=== PATIENT | male | born 1950 | race Caucasian/White ===

== ENCOUNTER 2022-05-28 16:22 | Outpatient (REF) | payer MEDICARE, SELFPAY ==
[2022-05-28 16:55] LABS: Ammonia 53 umol/L (13-55)
[2022-05-28 17:35] LABS: Carbamazepine Tegretol 11.1 mcg/mL (5.0-12.0)
[2022-05-28 17:39] LABS: Alanine Aminotransferase 24 U/L (0-40); Albumin Level 4.2 g/dL (3.5-5.0); Alkaline Phosphatase 71 U/L (39-117); Anion Gap 14 (12-20); Aspartate Amino Transferase 23 U/L (5-37); Bilirubin Direct 0.2 mg/dL (0.0-0.5); Bilirubin Total 0.5 mg/dL (0.0-1.0); Carbon Dioxide 25 mmol/L (22-29); Chloride 111 mmol/L (96-108); Potassium 4.6 mmol/L (3.3-5.1); Sodium 145 mmol/L (135-145); Total Protein 6.7 g/dL (6.5-8.0)
== END 2022-05-28 16:23 | disposition home or self-care (01) ==
LOC: HO.LAB 16:22
PROVIDERS: PCP Internal Medicine; Visit Provider Psychiatry & Neurology Neurology
DX: G40.909 Epilepsy, unspecified, not intractable, without status epilepticus (principal)
CPT/HCPCS: 36415; 80051; 80076; 80156; 80164; 82140

== ENCOUNTER 2023-05-27 15:32 | Outpatient (REF) | payer MEDICARE, SELFPAY ==
[2023-05-27 15:54] LABS: Ammonia 40 umol/L (13-55)
[2023-05-27 16:02] LABS: Alanine Aminotransferase 22 U/L (0-40); Albumin Level 4.4 g/dL (3.5-5.0); Alkaline Phosphatase 69 U/L (39-117); Aspartate Amino Transferase 23 U/L (5-37); Bilirubin Direct 0.2 mg/dL (0.0-0.5); Bilirubin Total 0.4 mg/dL (0.0-1.0); Total Protein 7.1 g/dL (6.5-8.0)
[2023-05-27 16:08] LABS: Carbamazepine Tegretol 10.4 mcg/mL (5.0-12.0); Valproate 75.5 mcg/mL (50.0-100.0)
== END 2023-05-27 15:33 | disposition home or self-care (01) ==
LOC: HO.LABR 15:32
PROVIDERS: Visit Provider Psychiatry & Neurology Neurology
DX: R56.9 Unspecified convulsions (principal); Z79.899 Other long term (current) drug therapy
CPT/HCPCS: 36415; 80076; 80156; 80164; 82140

== ENCOUNTER 2025-01-04 15:42 | Outpatient (AMB) | payer MEDICARE, SELFPAY ==
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
--- OUTSIDE RECORDS SUMMARY | 2025-01-04 19:59 | XMS_ITS | Patient Health Record ---
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 Name Role Phone Willi Marina MD Primary Care Provider Glory LopezLize Unavailable [phone] Allergies Allergen (clinical drug ingredient) Drug/Non Drug Allergy documented on EMR Reaction Allergy Type Onset Date Status phenytoin Dilantin Unknown Drug Allergy Active acetaminophen Tylenol Unknown Drug Allergy Act kae simvastatin Zocor Unknown Drug Allergy Activ e Results Component Value Reference Range Notes X ray : Foot, right 3V Reviewed date:03/25/2024 12:41:51 PM Interpretation:See Examination above Performing Lab: Notes/Report: See Examination above Reason For Referral No Information Medications Medication SIG (Take, Route, Frequency, Duration) Notes Start Date End Date Status Ezetimibe 10 MG 1 tablet Orally Once a day Unknown Vitamin B12 1000 MCG 1 tablet Orally Onc e a day Unknown Cephalexin 500 MG 1 capsule Orally francisco javier ry 12 hrs; Duration: 10 day(s) 03/25/2024 Active Baby Aspirin Active Crestor Active Depakote 250 MG 1 tablet Orally Twic e a day Active TEGretol-XR 200 MG 1 tablet Orally Twic e a day Active Rosuvastatin Calcium 40 MG 1 tablet Oral ly Once a day Unknown Ativan 1 MG 1 tablet at bedtime as needed Orally Once a day Unknown Calcium 600 High Potency 600 MG 1 tablet with food Orally Twice a day Active Zinc 30 MG 1 tablet Orally Once a day Active Fish Oil Burp-Less 1000 MG 1 capsule Ora lly Three times a day Active Multivitamin Adult - 1 tablet Orally Onc e a day Active Social History Tobacco Use: Social History Observation Description Date Details (start date - stop date) Never Smoker NA - NA Tobacco use other than smoking: Question Answer Notes Are you an other tobacco user? No Tobacco Control (Standard) Question Answer Notes Tobacco use: Nonsmoker Additional Findings: Tobacco non-user Current no nsmoker AUDIT-C (Standard) Question Answer Notes Did you have a drink contain ing alcohol in the past year? Yes How often did you have a dri nk containing alcohol in the past year? Never (0 point) How many drinks did you have on a typical day when you were drinking in the past year? 1 or 2 drinks (0 point) How often did you have six o r more drinks on one occasion in the past year? Never (0 point) Points 0 Interpretation Negative Problems Problem Type SNOMED Code ICD Code Onset Dates Problem Status W/U Status Risk Notes Problem Acquired hammer toe of right foot (2991416108698390) Other hammer toe(s) (acquired), right foot (M20.41) Active confirmed Problem Acquired hammer toe of left foot ([id number]) Other hammer toe(s) (acquired), left foot (M20.42) Active confirmed Problem Localized, primary osteoarthritis of the ankle and/or foot (662713022) Arthritis of joint of lesser toe, left (M19.072) Active confirmed Problem Localized, primary osteoarthritis of the ankle and/or foot (393852810) Arthritis of joint of lesser toe, right (M19.071) Active confirmed Vital Signs Blood pressure diastolic 77 mm Hg 04/13/2024 Height 5ft 9in in 04/13/2024 Blood pressure systolic 140 mm Hg 04/13/2024 Weight 220 lbs 04/13/2024 BMI 32.48 kg/m2 04/13/2024 Encounters Encounter Location Date [facility] [address] [place] [address] 03/25/2024 [facility] [facility] Cellulitis of foot L03.119 ; Bug bite, initial encounter W57.XXXA ; Soft tissue lesion of foot M79.9 ; Foreign body (FB) in soft tissue M79.5 and Foot pain, right M79.[address] [facility] [address] 03/31/2024 [facility] Cellulitis of foot L03.119 ; Soft tissue lesion of foot M79.9 ; Bug bite, initial encounter W57.XXXA ; Foreign body (FB) in soft tissue M79.5 ; Foot pain, right M79.671 ; Pain in right toe(s) M79.674 and Pain in left toe(s) M79.[address] [address] 04/13/2024 [facility] Soft tissue lesion of foot M79.9 ; Hematoma T14.8XXA ; Foot pain, right M79.671 and Phlegmon L02.[address] [address] 03/22/2024 [facility] [address] 03/23/2024 [facility] [facility] [address] [address] 03/25/2024 [facility] [address] 03/31/2024 [facility] Assessments Encounter Date Diagnosis (ICD Code) Assessment Notes Treatment Notes Treatment Clinical Notes Section Notes 03/25/2024 Cellulitis of foot (ICD-10 - L03.119) 03/31/2024 Cellulitis of foot (ICD-10 - L03.119) 03/31/2024 Soft tissue lesion of foot (ICD-10 - M79.9) 04/13/2024 Hematoma (ICD-10 - T14.8XXA) 04/13/2024 Soft tissue lesion of foot (ICD-10 - M79.9) 04/13/2024 Foot pain, right (ICD-10 - M79.671) 03/31/2024 Bug bite, initial encounter (ICD-10 - W57.XXXA) 03/25/2024 Bug bite, initial encounter (ICD-10 - W57.XXXA) 03/25/2024 Soft tissue lesion of foot (ICD-10 - M79.9) 04/13/2024 Phlegmon (ICD-10 - L02.91) 03/31/2024 Foreign body (FB) in soft tissue (ICD-10 - M79.5) 03/25/2024 Foreign body (FB) in soft tissue (ICD-10 - M79.5) 03/31/2024 Foot pain, right (ICD-10 - M79.671) 03/31/2024 Pain in right toe(s) (ICD-10 - M79.674) 03/25/2024 Foot pain, right (ICD-10 - M79.671) 03/31/2024 Pain in left toe(s) (ICD-10 - M79.675) Plan Of Treatment Pending Test Test Name Order Date *CBC With Differential/Platelet 03/25/19 Ultrasound : Lower Extremity, right 03/10 Insurance Providers Payer Name Payer Address Payer Phone Subscriber Number Group Number Insured Name Patient Relationship to Insured Coverage Start Date Coverage End Date Medicare [employer] [address] [place] [address] [id number] Bebeto Orellana Self - patient is the insured 1 8 [employer] Preferred [address] [place] [id number] [phone] [id number] Bebeto Orellana Self - patient is the insured Medical (General) History Medical History History ICD Code Coronary Arteriosclerosis Hyperglycemia aortic aneurysm Shoulder joint pain Hyperammonemic encephalopathy contusion of abdominal wall abdominal pain dyspnea edema Wrist pain Closed fracture of multiple ribs Seizures Hyperlipidemia Arthralgia of lower leg and upper arm Back,Hip,and Knee pain Broken bones CAD (Cholesterol) Cataracts covid-19 Hiatal hernia Lyme disease Osteoporosis Measles Mumps Chicken pox Surgical History Surgery Date(Month/Year) colonoscopy 03/12/2016 hernia 1915 back surgery 1989
== END 2025-01-04 16:04 | disposition home or self-care (01) ==
LOC: HO.HSM 15:43
PROVIDERS: PCP Internal Medicine; Visit Provider Psychiatry & Neurology Neurology
DX: G40.209 Localization-related (focal) (partial) symptomatic epilepsy and epileptic syndromes with complex partial seizures, not intractable, without status epilepticus (principal)
CPT/HCPCS: 99214

== ENCOUNTER 2025-01-04 15:42 | Outpatient (REF) | payer MEDICARE, SELFPAY ==
[2025-01-04 16:36] LABS: Ammonia 47 umol/L (13-55)
[2025-01-04 18:39] LABS: Carbamazepine Tegretol 9.3 mcg/mL (5.0-12.0)
== END 2025-01-04 15:43 | disposition home or self-care (01) ==
LOC: HO.LAB 15:42
PROVIDERS: PCP Internal Medicine; Visit Provider Psychiatry & Neurology Neurology
DX: G40.209 Localization-related (focal) (partial) symptomatic epilepsy and epileptic syndromes with complex partial seizures, not intractable, without status epilepticus (principal)
CPT/HCPCS: 36415; 80156; 80164; 82140; 99212